=== PATIENT | female | born 2000 | race Caucasian/White ===

== ENCOUNTER 2021-08-14 15:57 | Emergency (ER) | payer BC, SELFPAY ==
[2021-08-14 15:58] VITALS: BP 122/92; PULSE 95; RESP 18; TEMP 36.3; O2SAT 99; BMI 20.1
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
== END 2021-08-14 17:15 | disposition home or self-care (01) ==
PROVIDERS: Emergency Provider Emergency Medicine; PCP Family Medicine
DX: S16.1XXA Strain of muscle, fascia and tendon at neck level, initial encounter (principal); V43.52XA Car driver injured in collision with other type car in traffic accident, initial encounter; Y93.9 Activity, unspecified; Y92.9 Unspecified place or not applicable; E28.2 Polycystic ovarian syndrome
CPT/HCPCS: 71045; 72040; 99282